=== PATIENT | female | born 1970 | race Caucasian/White ===

== ENCOUNTER 2020-01-13 16:45 | Emergency (ER) | payer BC, OTHER ==
--- OUTSIDE RECORDS SUMMARY | 2020-01-13 17:36 | XMS REPORT | Clinical Summary ---
:1970 Author Organization [facility] Address [address] [place] [id number] Care Team Providers Name Role Phone Kin Rosales MD Primary Care Provider [phone] Allergies Not on File Medications Not on file Active Problems Not on file Social History Tobacco Use Types Packs/Day Years Used Date Never Assessed Sex Assigned at Date Recorded Not on file Job Start Date Occupation Industry Not on file Not on file Not on file Travel History Travel Start Travel End No recent travel history available. Last Filed Vital Signs Not on file Plan of Treatment Health Maintenance Due Date Last Done Comments CERVICAL CANCER SCREENING 1989 BREAST CANCER SCREENING 2018 COLONOSCOPY SCREENING 2018 SHINGLES VACCINES (#1) 2018 INFLUENZA VACCINE 01/04/2020 Results Not on fileafter 01/12/2019 RD n (Home) [address] [place] [address] Advance Directives For more information, please contact: [phone] Type Date Recorded Patient Property Adjuster Explanati on Advance Directives, Living 04/21/2017 7:37 AM Will and Medical Power of Student Union Consultant
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
[2020-01-14 08:11] VITALS: TEMP 98.4; O2SAT 100
[2020-01-14 08:13] VITALS: BP 151/90
== END 2020-01-13 18:11 | disposition home or self-care (01) ==
LOC: ER 16:45
DX: S20.01XA Contusion of right breast, initial encounter (principal); S20.211A Contusion of right front wall of thorax, initial encounter; V28.0XXA Motorcycle driver injured in noncollision transport accident in nontraffic accident, initial encounter; Z87.891 Personal history of nicotine dependence
CPT/HCPCS: 71046; 99284

== ENCOUNTER 2021-03-07 23:54 | Emergency (ER) | payer OTHER ==
--- NOTE | 2021-03-08 02:16 | EDPHYS ---
Physician Documentation [facility] [place], [place] Name: Emma Vargas Age: 50 yrs Sex: Female : 1970 Arrival Date: 03/07/2021 Time: 23:59 Bed 12 Private MD: KIKI Physician Amos Iyer HPI: 03/08 00:45 This 50 yrs old Female presents to ER via Ambulatory with complaints of cp Cough, Sore Throat. 00:45 The patient or guardian reports cough, that is intermittent. Onset: The cp symptoms/episode began/occurred yesterday. Associated signs and symptoms: Pertinent positives: sore throat, Pertinent negatives: diarrhea, ear ache, fever, vomiting. 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 LMP N/A - Post-menopause lp1 Historical: - Allergies: 00:10 No Known Allergies; lp1 - Home Meds: 00:17 gabapentin 400 mg oral cap 1 cap 3 times per day [Active]; [place] 10-325 mg Oral tab 1 lp1 tab every 6 hours [Active]; amlodipine 2.5 mg tab 1 tab once daily [Active]; sumatriptan 50 mg [Active]; methocarbamol 500 mg Oral tab 4 times per day [Active]; Adderall XR 20 mg Oral cp24 twice a day [Active]; levothyroxine 25 mcg cap 1 cap once daily [Active]; hydroxychloroquine 200 mg oral tab [Active]; - PMHx: 00:10 Degenerative Disc; Osteoarthritis; lp1 00:17 Hypothyroidism; lp1 - PSHx: 00:10 None; lp1 - Immunization history:: Adult Immunizations up to date, Client reports having NOT received the Covid vaccine. - Social history:: Smoking status: Reported history of juuling and/or vaping. ROS: 00:50 Constitutional: Negative for body aches, chills, fever, poor PO intake. cp 00:50 Eyes: Negative for injury, pain, redness, and discharge. cp 00:50 ENT: Positive for sore throat, Negative for drainage from ear(s), ear pain, difficulty swallowing, difficulty handling secretions. 00:50 Cardiovascular: Negative for chest pain. 00:50 Respiratory: Positive for cough, with no reported sputum, Negative for shortness of breath, wheezing. 00:50 Abdomen/GI: Negative for abdominal pain, nausea, vomiting, and diarrhea. 00:50 Skin: Negative for rash. 00:50 Neuro: Negative for altered mental status, headache, weakness. 00:50 All other systems are negative. Exam: 00:55 Constitutional: The patient appears in no acute distress, alert, awake, non-toxic, well cp developed, well nourished. 00:55 Head/Face: Normocephalic, atraumatic. cp 00:55 Eyes: Periorbital structures: appear normal, Conjunctiva: normal, no exudate, no injection, Lids and lashes: appear normal, bilaterally. 00:55 ENT: External ear(s): are unremarkable, Ear canal(s): are normal, clear, TM's: dullness, bilaterally, Nose: is normal, Mouth: Lips: moist, Oral mucosa: pink and intact, moist, Posterior pharynx: Tonsils: no enlargement, no exudate, Uvula: midline, swelling, is not appreciated, erythema, that is mild, exudate, is not appreciated. 00:55 Neck: ROM/movement: is normal, is supple, without pain, no range of motions limitations, no meningismus, Lymph nodes: no appreciated lymphadenopathy. 00:55 Chest/axilla: Inspection: normal. 00:55 Cardiovascular: Rate: normal. 00:55 Respiratory: the patient does not display signs of respiratory distress, Respirations: normal, no use of accessory muscles, no retractions, labored breathing, is not present. 00:55 Abdomen/GI: Inspection: abdomen appears normal. Vital Signs: 00:08 BP 117 / 83; Pulse 77; Resp 18; Temp 98.3(O); Pulse Ox 100% on R/A; Weight 58.97 kg lp1 (R); Height 5 ft. 2 in. (157.48 cm); Pain 5/10; 00:08 Body Mass Index 23.78 (58.97 kg, 157.48 cm) lp1 MDM: 00:20 Patient medically screened. cp 01:00 Differential Diagnosis: Bronchitis Influenza Upper Respiratory Infection Pharyngitis cp Otitis Media Viral Syndrome Pneumonia. 02:15 Data reviewed: vital signs, nurses notes, lab test result(s). cp 02:15 Counseling: I had a detailed discussion with the patient and/or guardian regarding: the cp historical points, exam findings, and any diagnostic results supporting the discharge/admit diagnosis, lab results. ED course: VSS. Discussed negative labs results. Will discharge to home for continued monitoring. 03/08 00:33 Order name: Strep cp 03/08 00:33 Order name: Influenza Screen (a \T\ B) cp 03/08 00:34 Order name: Group A Streptococcus Rapid Sc EDMS 03/08 00:58 Order name: Throat Culture EDMS 03/08 01:46 Order name: SARS-COV-2 RT PCR EDMS Administered Medications: No medications were administered Disposition: 05:31 Co-signature as Attending Physician, Amos Iyer MD. mh7 Disposition Summary: 03/08/21 02:16 Discharge Ordered Location: Home cp Problem: new cp Symptoms: are unchanged cp Condition: Stable cp Diagnosis - Acute upper respiratory infection, unspecified cp Followup: cp - With: Private Physician - When: 2 - 3 days - Reason: Worsening of condition Discharge Instructions: - Discharge Summary Sheet cp - Upper Respiratory Infection, Adult cp Forms: - Medication Reconciliation Form cp - Thank You Letter cp - Antibiotic Education cp - Prescription Opioid Use cp Prescriptions: - Tessalon Perles 100 mg Oral Capsule - take 2 capsule by ORAL route every 8 hours As needed; 20 capsule; Refills: 0, cp Product Selection Permitted Signatures: Dispatcher [employer] EDCharity White RN RN lp1 Zafar Berry PA PA cp Amos Iyer MD MD mh7 Corrections: (The following items were deleted from the chart) 00:42 00:34 CORONAVIRUS+MR.LAB.BRZ ordered. EDDC EDDC
--- NOTE | 2021-03-08 02:16 | ER ---
Nurse's Notes [facility] Name: Emma Vargas Age: 50 yrs Sex: Female : 1970 Arrival Date: 03/07/2021 Time: 23:59 Bed 12 Private MD: Diagnosis: Acute upper respiratory infection, unspecified Presentation: 03/08 00:08 Chief complaint: Patient states: Sore throat that began yesterday, reports worse today lp1 and with cough; denies fever. Coronavirus screen: cough unrelated to allergies, sore throat. Ebola Screen: No symptoms or risks identified at this time. Initial Sepsis Screen: Does the patient meet any 2 criteria? No. Patient's initial sepsis screen is negative. Does the patient have a suspected source of infection? No. Patient's initial sepsis screen is negative. Risk Assessment: Do you want to hurt yourself or someone else? Patient reports no desire to harm self or others. Onset of symptoms was March 08, 2021. 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 lp1 Historical: - Allergies: 00:10 No Known Allergies; lp1 - Home Meds: 00:17 gabapentin 400 mg oral cap 1 cap 3 times per day [Active]; [place] 10-325 mg Oral tab 1 lp1 tab every 6 hours [Active]; amlodipine 2.5 mg tab 1 tab once daily [Active]; sumatriptan 50 mg [Active]; methocarbamol 500 mg Oral tab 4 times per day [Active]; Adderall XR 20 mg Oral cp24 twice a day [Active]; levothyroxine 25 mcg cap 1 cap once daily [Active]; hydroxychloroquine 200 mg oral tab [Active]; - PMHx: 00:10 Degenerative Disc; Osteoarthritis; lp1 00:17 Hypothyroidism; lp1 - PSHx: 00:10 None; lp1 - Immunization history:: Adult Immunizations up to date, Client reports having NOT received the Covid vaccine. - Social history:: Smoking status: Reported history of juuling and/or vaping. Screenin:10 Abuse screen: Denies threats or abuse. Denies injuries from another. Nutritional lp1 screening: No deficits noted. Tuberculosis screening: No symptoms or risk factors identified. Fall Risk None identified. Assessment: 00:20 General: Appears in no apparent distress. Behavior is appropriate for age. Pain: lp1 Complains of pain in throat Pain currently is 5 out of 10 on a pain scale. Quality of pain is described as aching. Neuro: Level of Consciousness is awake, alert, obeys commands. Cardiovascular: Patient's skin is warm and dry. Respiratory: Reports cough that is dry, Airway is patent Respiratory effort is even, unlabored, Respiratory pattern is regular, Breath sounds are clear bilaterally. GI: No signs and/or symptoms were reported involving the gastrointestinal system. : No signs and/or symptoms were reported regarding the genitourinary system. EENT: Throat is reddened. Derm: Skin is pink, warm \T\ dry. Musculoskeletal: No deficits noted. 01:33 Reassessment: Patient appears in no apparent distress at this time. Patient and/or lp1 family updated on plan of care and expected duration. Pain level reassessed. 02:26 Reassessment: Patient appears in no apparent distress at this time. Patient is alert, lp1 oriented x 3, equal unlabored respirations, skin warm/dry/pink. Vital Signs: 00:08 BP 117 / 83; Pulse 77; Resp 18; Temp 98.3(O); Pulse Ox 100% on R/A; Weight 58.97 kg lp1 (R); Height 5 ft. 2 in. (157.48 cm); Pain 5/10; 00:08 Body Mass Index 23.78 (58.97 kg, 157.48 cm) lp1 ED Course: 03/07 23:59 Patient arrived in ED. bp1 03/08 00:10 Triage completed. lp1 00:10 Arm band placed on. lp1 00:11 Charity Daniels, STAR is Primary Nurse. lp1 00:12 Zafar Berry PA is PHCP. cp 00:12 Amos Iyer MD is Attending Physician. cp 00:21 Patient has correct armband on for positive identification. lp1 00:21 No provider procedures requiring assistance completed. lp1 01:34 Patient did not have IV access during this emergency room visit. lp1 Administered Medications: No medications were administered Outcome: 02:16 Discharge ordered by . cp 02:26 Discharged to home ambulatory, with significant other. lp1 02:26 Condition: good 02:26 Discharge instructions given to patient, Instructed on discharge instructions, follow up and referral plans. medication usage, Demonstrated understanding of instructions, follow-up care, medications, Prescriptions given X 1. 02:26 Patient left the ED. lp1 Signatures: Charity Daniels RN RN lp1 Zafar Berry PA PA cp [place], Brittany bp1
[2021-03-08 02:41] VITALS: BP 117/83; TEMP 98.3; O2SAT 100
== END 2021-03-08 02:26 | disposition home or self-care (01) ==
LOC: ER 23:54
DX: J06.9 Acute upper respiratory infection, unspecified (principal); Z20.822 Contact with and (suspected) exposure to COVID-19; E03.9 Hypothyroidism, unspecified
CPT/HCPCS: 87070; 87081; 87804 ×2; 99282; U0003